=== PATIENT | female | born 1970 | race African-American/Black ===

== ENCOUNTER 2016-08-13 14:01 | Emergency (ER) | payer OTHER ==
[~2016-08-13] VITALS: Ht 177.8 cm; Wt 82.1 kg
[~2016-08-13 14:01] MED LIST: ACETAMINOPHEN-1 EAC1 ORAL; ACETAMINOPHEN650 M2 ORAL; ACYCLOVIR400 MG ORAL; ALBUTEROL SULF8.5 GM INH; ATARAX50 MG ORAL; AUGMENTIN TAB875 MG ORAL; AZITHROMYCIN250 MG ORAL; BACITRACIN15 GM TOPIC; BACTRIM DS TAB1 EAC1 ORAL; BACTRIM-DS1 EA ORAL; BACTROBAN 2% OI15 GM TOPIC; BENADRYL25 MG ORAL; BENADRYL50 MG ORAL; CEPHALEXIN500 MG ORAL; CORTISPORIN-TC10 M1 RIGHT EAR; FLONASE1 SPRAYS NASAL; HYDROCORTISONE28 G5 TP; IBUPROFEN600 MG ORAL; KEFLEX500 MG ORAL; KENALOG 0.1% CR15 GM APPLIC; LEVAQUIN500 MG ORAL; LIDOCAINE VISCO20 ML *; MEDROL DOSEPAK4 MG ORAL; MEDROL4 MG ORAL; MUPIROCIN22 GM TOPIC; MYLANTA II30 ML GT; NKM; NORCO 5-325 TA1 EAC1 ORAL; OMEPRAZOLE20 M2 ORAL; OPCON-A EYE DRO15 ML OP; PREDNISONE20 MG ORAL; PREDNISONE50 MG ORAL; PROMETHAZINE-C118 M1 ORAL; PROMETHAZINE-D118 ML ORAL; TRIAMCINOLONE A60 M1 TP; TUSSIN100 MG/52 PO; ZITHROMAX250 MG ORAL; ZOFRAN ODT4 MG ORAL; ZOFRAN4 MG ORAL; ZYRTEC10 MG ORAL
[2016-08-13 14:25] VITALS: BP 124/81
[2016-08-13] MEDS ORDERED: PredniSONE 20mg tab ORAL ONE (14:30)
[2016-08-13] MEDS ORDERED: PREDNISONE20 MG ORAL (14:35)
[2016-08-13] MEDS ORDERED: KENALOG 0.025%15 GM APPLIC (14:35)
[2016-08-13 14:40] VITALS: BP 124/81
--- NOTE | 2016-08-13 14:59 | Emergency Room Report ---
History of Present Illness General Chief Complaint: Skin Rash/Abscess Source: Patient Present Illness HPI The patient is a 46-year-old female presenting for possible allergic reaction. She states that she used triple antibiotic ointment on the left arm and then noticed a red rash with itching. She denies any pain. She denies any known allergies. She denies any other symptoms including SOB, facial or extremity swelling, CP, F, chills, N, V, DELCID, dizziness Allergies: Coded Allergies: No Known Allergies (Unverified , 07/04/12) Patient History Past Medical History: see triage record Pertinent Family History: none Last Menstrual Period: 08/01/16 Now: No : 2 Para: 2 Reviewed Nursing Documentation: PMH: Agreed, PSxH: Agreed Nursing Documentation-PMH Past Medical History: No History, Except For Hx Cardiac Problems: No Hx Cancer: No Hx Gastrointestinal Problems: Yes Hx Neurological Problems: No - neuropathy eczema Hx Cerebrovascular Accident: No Review of Systems All Other Systems: negative except mentioned in HPI Physical Exam Vital Signs Date Time Temp Pulse Resp B/P Pulse Ox O2 Delivery O2 Flow Rate FiO2 08/13/16 14:10 98.2 71 16 121/84 99 Room Air Sp02 EP Interpretation: reviewed, normal General Appearance: no apparent distress, alert, GCS 15, non-toxic Head: normocephalic, atraumatic Eyes: bilateral eye PERRL, bilateral eye normal inspection ENT: hearing grossly normal, normal pharynx, no angioedema, normal voice Neck: full range of motion, supple/symm/no masses Musculoskeletal: back normal, gait/station normal, normal range of motion, non- tender Neurologic: alert, oriented x3, responsive, motor strength/tone normal, sensory intact, speech normal Psychiatric: judgement/insight normal, memory normal, mood/affect normal, no suicidal/homicidal ideation Skin: rash - maculopapular rash of the L upper chest Lymphatic: no adenopathy Medical Decision Making PA Attestation Dr. Huitron is my supervising physician. Patient management was discussed with my supervising physician Diagnostic Impression: Primary Impression: Contact dermatitis Qualified Codes: L23.3 - Allergic contact dermatitis due to drugs in contact with skin ER Course The patient is a 46-year-old female presenting for rash Ddx considered include but not limited to insect bite, contact dermatitis, eczema, cellulitis PE: vitals WNL. NAD There is a maculopapular rash of the left upper chest. No edema. Nontender. The patient is given prednisone in the emergency department and will be discharged home with prednisone and triamcinolone. She'll stop using triple antibiotic ointment. ER precautions given Last Vital Signs Date Time Temp Pulse Resp B/P Pulse Ox O2 Delivery O2 Flow Rate FiO2 08/13/16 14:40 98.1 68 15 124/81 98 Room Air Status: improved Disposition: HOME, SELF-CARE Condition: Improved Scripts Triamcinolone Acet (Triamcinolone Acetonide) 15 Gm Cream..g. 15 GM APPLIC TID, #15 GM Prov: SUNI LANDERS 08/13/16 Prednisone* (PREDNISONE*) 20 Mg Tablet 40 MG ORAL DAILY, #6 TAB Prov: SUNI LANDERS 08/13/16 Referrals: NON PHYSICIAN (PCP) Patient Instructions: Rash Additional Instructions: I discussed my findings with the patient. All questions and concerns have been answered. Treatment and medication compliance have been addressed. I advised the patient that they need to follow up with PMD in 3-5 days. Return to ED if symptoms worsen, new symptoms arise, or if needed for any reason. Patient verbalized understanding of discharge instructions. The patient will stop using triple antibiotic ointment SUNI LANDERS Aug 13, 2016 14:59
== END 2016-08-13 14:41 | disposition home or self-care (01) ==
LOC: EMR 14:30
DX: L25.9 Unspecified contact dermatitis, unspecified cause (principal)
CPT/HCPCS: 99284

== ENCOUNTER 2017-11-22 15:56 | Emergency (ER) | payer MEDICAID, OTHER ==
[~2017-11-22] VITALS: Ht 177.8 cm; Wt 67.1 kg
[~2017-11-22 15:56] MED LIST changes: +KENALOG 0.025%15 GM APPLIC
[2017-11-22 16:18] VITALS: BP 170/109
--- NOTE | 2017-11-22 16:43 | Emergency Room Report ---
History of Present Illness General Chief Complaint: Skin Rash/Abscess Source: Patient Present Illness HPI 47-year-old female patient presents ER with multiple complaints. Patient complaining of eczematous rash on bilateral upper axillary regions, states has been taking hydrocortisone, and took 1 dose of prednisone from a friend several days ago. Reports has primary care provider but has not seen them, has appointment scheduled next week. requesting stronger medication than cortisone and Benadryl for relief of itching symptoms. Denies fever, chest pain , shortness of breath, abdominal pain. Patient also complaining of cough for the past 3 days, states that she smokes cigarettes. Denies hemoptysis. denies recent travel or immobilization. reports history of hypertension, not well controlled. Denies history of CHF or asthma. Also complaining of congestion during this time. Reports history of allergies. Also complaining about smelling odor from urine. denies pelvic rash. Denies dysuria, hematuria, vaginal discharge. reports previously tested for STI and treated. Patient requesting IV Benadryl for itching symptoms. patient also requesting IV pain medication. Allergies: Coded Allergies: No Known Allergies (Unverified , 07/04/12) Patient History Past Medical History: see triage record Now: No Reviewed Nursing Documentation: PMH: Agreed; PSxH: Agreed Nursing Documentation-PMH Past Medical History: No History, Except For Hx Cardiac Problems: No Hx Hypertension: Yes Hx Cancer: No Hx Gastrointestinal Problems: Yes Hx Neurological Problems: No - neuropathy eczema Hx Cerebrovascular Accident: No Review of Systems All Other Systems: negative except mentioned in HPI Physical Exam Vital Signs Date Time Temp Pulse Resp B/P (MAP) Pulse Ox O2 Delivery O2 Flow Rate FiO2 11/22/17 16:08 97.8 110 22 170/109 98 Room Air 97.9 Sp02 EP Interpretation: reviewed, normal General Appearance: well appearing, no apparent distress, alert, GCS 15, non- toxic Head: normocephalic, atraumatic Eyes: bilateral eye normal inspection, bilateral eye PERRL ENT: hearing grossly normal, normal pharynx, no angioedema, normal voice, TMs + canals normal, uvula midline, moist mucus membranes, nasal congestion Neck: full range of motion Respiratory: lungs clear, normal breath sounds, no rhonchi, no respiratory distress, no accessory muscle use, no wheezing, speaking full sentences Cardiovascular #1: regular rate, rhythm, no edema Gastrointestinal: non tender, soft, no mass, non-distended, no guarding, no pulsatile mass, no rebound Genitourinary: no CVA tenderness, deferred Musculoskeletal: back normal, digits/nails normal, gait/station normal, normal range of motion, non-tender, no calf tenderness, Marlen's Sign negative Neurologic: alert, oriented x3, responsive, motor strength/tone normal, sensory intact Psychiatric: mood/affect normal Skin: rash - eczematous rash on bilateral axillary regions and flexor surfaces of anterior cubital fossa, no active drainage, no vesicles, no blisters, no surrounding erythema or edema, no scalloped borders. no central clearing Medical Decision Making PA Attestation Dr. Acosta is my supervising Physician whom patient management has been discussed with. Diagnostic Impression: Primary Impression: Eczema Additional Impressions: URI (upper respiratory infection) Bacterial vaginosis Drug-seeking behavior ER Course Pt. presents to the ED c/o rash, foul-smelling odor in urine and cough. Ddx considered but are not limited to atopic dermatitis, scabies, shingles, hives, urticaria, angiodema, allergic reaction, impetigo, no vesicles, no blisters, low suspicion for shingles. Low suspicion for PE per Well's criteria, no hemoptysis, no calf swelling, no blood medications, no recent travel or immobilization. Vital signs: are WNL, pt. is afebrile. Blood pressure mildly elevated at this time, will continue to monitor. Denies chest pain, shortness of breath, vision changes, does not require acute intervention at ER at this time. Follow with primary care provider discuss further treatment and referral. Advised on low-sodium diet, advised on diet and exercise. instructed patient to follow-up with primary care provider and be compliant with hypertension medications. ER COURSE Initial physical exam patient complaining of bilateral eczematous rash in armpits. On repeat physical exam patient had multiple other complaints including foul smelling urine odor and cough. Patient requesting IV Benadryl and medication, informed patient would not provide her with IV Benadryl. Suspicious for drug-seeking behavior. Physical exam consistent with eczema. Will provide patient with Benadryl for itching and medrol Dosepak. Instructed patient not take other people's medication. Followup with dermatology. contact information for dermatology. Patient states has appointment with physician next week, will discuss Derm referral and medication at that time. Lungs clear to auscultation, no wheezes rhonchi or rails, patient is afebrile, does not require imaging of chest, low suspicion for pneumonia. likely upper respiratory tract infection, provide treatment patient. no lower leg edema, no decreased lung sounds, no hx of CHF, low suspicion for CHF exacerbation. High clinical suspicion for bacterial vaginosis due to patient complaining of foul smelling odor, will treat empirically with Metronidazole. Patient denies dysuria, hematuria, does not require UA at this time. Instructed patient to follow-up with STI clinic for further STI testing treatment, denies concern for STI at this time. Provide with contact information for STI clinics. Have partners wear condoms during sex. Drink plenty fluids. DISCHARGE: -Rx given for Benadryl for pruritis. SE drowsiness, do not take prior to drinking, driving, operating heavy machinery. -Rx given for Flonase -Rx given for metronidazole, do not drink while taking medication -Rx given for Triamcinolone -Rx given for Medrol dose pack At this time pt. is stable for d/c to home. Patient resting comfortably, in no acute distress, nontoxic appearing. Will provide printed patient care instructions, and any necessary prescriptions. Care plan and follow up instructions have been discussed with the patient prior to discharge. Patient provided with list of healthcare clinics to establish primary care physician. Patient instructed to follow-up with primary care provider in 3 - 5 days. Patient questions asked and answered. ER precautions given. Patient instructed to return to ER immediately for any new or worsening of symptoms including but not limited to increasing SOB, persistent fever. - Please note that this Emergency Department Report was dictated using Gigitadult literacy instructor technology software, occasionally this can lead to erroneous entry secondary to interpretation by the dictation equipment. Last Vital Signs Date Time Temp Pulse Resp B/P (MAP) Pulse Ox O2 Delivery O2 Flow Rate FiO2 11/22/17 16:18 97.9 22 170/109 98 Room Air 97.9 11/22/17 16:08 110 Disposition: HOME, SELF-CARE Condition: Stable Scripts Methylprednisolone (MEDROL) 4 Mg Tab.ds.pk 4 MG PO DAILY, #1 PACK Prov: Alvin Francis 11/22/17 Triamcinolone Acetonide (TRIAMCINOLONE ACETONIDE) 15 Gm Cream..g. 15 GM TP DAILY, #15 GM Prov: Alvin Francis 11/22/17 Metronidazole* (METROGEL-VAGINAL*) 70 Gm Gel.w.appl 1 APPL VAGIN EVERY 12 HOURS, #70 GM Prov: Alvin Francis 11/22/17 Diphenhydramine Hcl* (BENADRYL*) 25 Mg Capsule 25 MG ORAL Q6H PRN for Itching, #30 CAP Prov: Alvin Francis 11/22/17 Fluticasone Propionate (Flonase Allergy Relief) 9.9 Ml [place].susp 9.9 ML NS DAILY, #9.9 ML Prov: Alvin Francis 11/22/17 Patient Instructions: Bacterial Vaginosis, Eczema, Upper Respiratory Infection , Adult, [id number] Additional Instructions: Followup with primary care provider in 3 -5 days. Request referral to dermatology. Do not scratch or itch. Apply cool compresses to affected area. Do not drink alcohol taking metronidazole due to side effects. Drink plenty of fluids. Take medications as directed. Do not apply medication to face or skin creases. SE Benadryl drowsiness, do not take prior to drinking, driving, operating heavy machinery. Patient questions asked and answered. ER precautions given, patient instructed to return to ER immediately for any new or worsening of symptoms. [facility] Alvin Francis Nov 22, 2017 16:43
[2017-11-22] MEDS ORDERED: FLONASE ALLERG9.9 ML NS (16:52)
[2017-11-22] MEDS ORDERED: METROGEL-VAGINA70 G1 VAGIN (16:52)
[2017-11-22] MEDS ORDERED: BENADRYL25 MG ORAL (16:52)
[2017-11-22] MEDS ORDERED: TRIAMCINOLONE A15 GM TP (16:52)
[2017-11-22] MEDS ORDERED: MEDROL4 M1 PO (16:52)
[2017-11-22 16:57] VITALS: BP 166/94
== END 2017-11-22 16:57 | disposition home or self-care (01) ==
LOC: EMR 16:25
DX: L30.9 Dermatitis, unspecified (principal); J06.9 Acute upper respiratory infection, unspecified; N76.0 Acute vaginitis; B96.89 Other specified bacterial agents as the cause of diseases classified elsewhere; Z76.5 Malingerer [conscious simulation]
CPT/HCPCS: 99283

== ENCOUNTER 2017-12-04 10:50 | Emergency (ER) | payer MEDICAID ==
[~2017-12-04] VITALS: Ht 177.8 cm; Wt 65.8 kg
[~2017-12-04 10:50] MED LIST changes: +FLONASE ALLERG9.9 ML NS; +MEDROL4 M1 PO; +METROGEL-VAGINA70 G1 VAGIN; +TRIAMCINOLONE A15 GM TP
[2017-12-04 11:09] VITALS: BP 168/108
[2017-12-04] MEDS ORDERED: Bacitracin Oint UD TOPIC ONE ×2 (11:59→12:30)
--- NOTE | 2017-12-04 12:01 | Emergency Room Report ---
History of Present Illness General Chief Complaint: Pain Source: Patient Present Illness HPI Patient complains of chronic right arm pain. She states that the pain is in the triceps muscle and biceps muscle of her right arm. She states that this is been ongoing for many years. She denies recent trauma or injury. She denies fever or chills. She denies weakness. She denies tingling or numbness. She also complains of a wound on her bottom lip. She states that she suffered a lip laceration 2 days ago. She is wondering if she can get it glued closed. She has no other complaints. Allergies: Coded Allergies: No Known Allergies (Unverified , 07/04/12) Patient History Past Medical History: see triage record, HTN, other - neuropathy Social History: Reports: smoking, alcohol use, drug use Last Menstrual Period: over an year ago Now: No Reviewed Nursing Documentation: PMH: Agreed; PSxH: Agreed Nursing Documentation-PMH Past Medical History: No History, Except For Hx Cardiac Problems: No Hx Hypertension: Yes Hx Cancer: No Hx Gastrointestinal Problems: Yes Hx Neurological Problems: No - neuropathy eczema Hx Cerebrovascular Accident: No Review of Systems All Other Systems: negative except mentioned in HPI Physical Exam Vital Signs Date Time Temp Pulse Resp B/P (MAP) Pulse Ox O2 Delivery O2 Flow Rate FiO2 12/04/17 11:00 98.2 100 18 168/108 96 Room Air 98.2 Sp02 EP Interpretation: reviewed, normal General Appearance: no apparent distress, alert, GCS 15, non-toxic Head: normocephalic, other - Bottom lip with 1mm depth irregular laceration of the lip. Eyes: bilateral eye normal inspection, bilateral eye PERRL ENT: hearing grossly normal, normal pharynx, no angioedema, normal voice Neck: full range of motion, supple/symm/no masses Respiratory: chest non-tender, lungs clear, normal breath sounds, no respiratory distress, no retraction, no accessory muscle use, speaking full sentences Cardiovascular #1: regular rate, rhythm, no edema Gastrointestinal: normal bowel sounds, non tender, soft, non-distended, no guarding, no rebound Rectal: deferred Musculoskeletal: back normal, gait/station normal, normal range of motion, non- tender Neurologic: alert, oriented x3, responsive, motor strength/tone normal, sensory intact, speech normal Psychiatric: judgement/insight normal, memory normal, mood/affect normal, no suicidal/homicidal ideation Skin: warm/dry, well hydrated, other - see above in head Medical Decision Making Diagnostic Impression: Primary Impression: Cervical radiculopathy Additional Impression: Lip laceration ER Course This patient has a healing lip laceration. There is some granulation tissue and some swelling that could be early infection versus traumatic inflammation. I will go ahead and start the patient on a course of antibiotics as a precaution. The patient's chronic right arm pain is likely secondary to cervical radiculopathy. The patient's examination is benign. Patient's pulses normal. I do not suspect DVT or surgical radiculopathy. The skin is warm, pulses are normal. The patient is instructed to follow-up routinely with her primary care physician. At this time I do not suspect emergency medical condition. The patient is given return precautions and follow-up instructions. Last Vital Signs Date Time Temp Pulse Resp B/P (MAP) Pulse Ox O2 Delivery O2 Flow Rate FiO2 12/04/17 11:09 98.2 100 18 168/108 96 Room Air 98.2 Status: improved Disposition: HOME, SELF-CARE Condition: Improved Referrals: [facility],REFERRING (PCP) Bertha Acosta DO Dec 04, 2017 12:01
[2017-12-04 12:11] VITALS: BP 163/98
[2017-12-04] MEDS ORDERED: AUGMENTIN 875-1 EAC1 ORAL (12:25)
[2017-12-04 12:30] VITALS: BP 163/98
== END 2017-12-04 12:31 | disposition home or self-care (01) ==
LOC: EMR 11:20
DX: M54.12 Radiculopathy, cervical region (principal); S01.511A Laceration without foreign body of lip, initial encounter; X58.XXXA Exposure to other specified factors, initial encounter; Y93.9 Activity, unspecified; Y92.9 Unspecified place or not applicable; I10 Essential (primary) hypertension
CPT/HCPCS: 99282

== ENCOUNTER 2018-03-01 03:45 | Emergency (ER) | payer MEDICAID ==
[~2018-03-01] VITALS: Ht 177.8 cm; Wt 65.8 kg
[~2018-03-01 03:45] MED LIST changes: +AUGMENTIN 875-1 EAC1 ORAL
[2018-03-01 04:02] VITALS: BP 158/97
--- NOTE | 2018-03-01 04:41 | Emergency Room Report ---
History of Present Illness General Chief Complaint: Abdominal Pain Source: Patient Present Illness HPI Patient presents with right-sided abdominal pain reports that started yesterday Patient reports drinking heavier alcohol than usual Denies any vomiting she has some increased nausea Denies any chest pain or shortness of breath denies any lower abdominal pain Denies any back or flank pain and eyes any dysuria or frequency Allergies: Coded Allergies: No Known Allergies (Unverified , 07/04/12) Patient History Past Medical History: see triage record Pertinent Family History: none Last Menstrual Period: 2017 Now: No Para: 2 Reviewed Nursing Documentation: PMH: Agreed; PSxH: Agreed Nursing Documentation-PMH Hx Cardiac Problems: No Hx Hypertension: Yes Hx Cancer: No Hx Gastrointestinal Problems: Yes Hx Neurological Problems: No - neuropathy eczema Hx Cerebrovascular Accident: No Review of Systems All Other Systems: negative except mentioned in HPI Physical Exam Vital Signs Date Time Temp Pulse Resp B/P (MAP) Pulse Ox O2 Delivery O2 Flow Rate FiO2 03/01/18 03:49 99.7 108 16 158/97 97 Room Air Sp02 EP Interpretation: reviewed, normal General Appearance: no apparent distress Head: normocephalic, atraumatic Eyes: bilateral eye PERRL, bilateral eye EOMI ENT: hearing grossly normal, normal pharynx, TMs + canals normal, uvula midline Neck: full range of motion, supple, no meningismus, no bony tend Respiratory: lungs clear, normal breath sounds, no rhonchi, no respiratory distress, no retraction, no accessory muscle use Cardiovascular #1: normal peripheral pulses, regular rate, rhythm, no edema, no gallop, no JVD, no murmur Gastrointestinal: normal bowel sounds, non tender, soft, no mass, no organomegaly, non-distended, no guarding, no hernia, no pulsatile mass, no rebound Genitourinary: no CVA tenderness Musculoskeletal: normal inspection Neurologic: oriented x3, responsive, platform consultant III-XII nml as tested, motor strength/ tone normal, sensory intact Psychiatric: mood/affect normal Skin: normal color, no rash, warm/dry, palpation normal Lymphatic: normal inspection, no adenopathy Medical Decision Making Diagnostic Impression: Primary Impression: Abdominal pain ER Course With the history exam and presentation, multiple differentials considered, including but not limited to appendicitis, gastritis, cholecystitis, diverticulitis Patient resting comfortably in the bed Palpation and abdominal exam is fairly benign Spectrum blood work was initiated which is normal on repeat evaluation patient still continues to rest well And is stable for initial conservative outpatient trial Labs Test 03/01/18 05:00 White Blood Count 9.2 K/UL (4.8-10.8) Red Blood Count 4.19 M/UL (4.20-5.40) Hemoglobin 13.4 G/DL (12.0-16.0) Hematocrit 40.0 % (37.0-47.0) Mean Corpuscular Volume 96 FL (80-99) Mean Corpuscular Hemoglobin 31.9 PG (27.0-31.0) Mean Corpuscular Hemoglobin Concent 33.4 G/DL (32.0-36.0) Red Cell Distribution Width 11.9 % (11.6-14.8) Platelet Count 308 K/UL (150-450) Mean Platelet Volume 7.6 FL (6.5-10.1) Neutrophils (%) (Auto) 79.4 % (45.0-75.0) Lymphocytes (%) (Auto) 13.7 % (20.0-45.0) Monocytes (%) (Auto) 6.0 % (1.0-10.0) Eosinophils (%) (Auto) 0.3 % (0.0-3.0) Basophils (%) (Auto) 0.7 % (0.0-2.0) Sodium Level 135 MMOL/L (136-145) Potassium Level 3.6 MMOL/L (3.5-5.1) Chloride Level 101 MMOL/L (98-107) Carbon Dioxide Level 25 MMOL/L (21-32) Anion Gap 9 mmol/L (5-15) Blood Urea Nitrogen 7 mg/dL (7-18) Creatinine 0.9 MG/DL (0.55-1.30) Estimat Glomerular Filtration Rate > 60 mL/min (>60) Glucose Level 97 MG/DL (74-106) Calcium Level 9.0 MG/DL (8.5-10.1) Total Bilirubin 0.3 MG/DL (0.2-1.0) Aspartate Amino Transf (AST/SGOT) 22 U/L (15-37) Alanine Aminotransferase (ALT/SGPT) 21 U/L (12-78) Alkaline Phosphatase 111 U/L (46-116) Total Protein 9.2 G/DL (6.4-8.2) Albumin 3.2 G/DL (3.4-5.0) Globulin 6.0 g/dL Albumin/Globulin Ratio 0.5 (1.0-2.7) Lipase 110 U/L (73-393) Last Vital Signs Date Time Temp Pulse Resp B/P (MAP) Pulse Ox O2 Delivery O2 Flow Rate FiO2 03/01/18 04:02 108 16 Room Air 03/01/18 04:02 99.7 158/97 97 Status: improved Disposition: HOME, SELF-CARE Condition: Improved Scripts Acetaminophen (Tylenol) 325 Mg Tablet 650 MG ORAL Q8HR PRN for Prn Pain/Headache/Temp > 101, #15 TAB 0 Refills Prov: Enedina Hernandez DO 03/01/18 Famotidine (PEPCID AC) 20 Mg Tablet 20 MG PO DAILY, #15 TAB Prov: Enedina Hernandez DO 03/01/18 Additional Instructions: Patient is provided with the discharge instructions notified to follow up with primary doctor in the next 2-3 days otherwise return to the er with any worsening symptoms. Please note that this report is being documented using [employer] technology. This can lead to erroneous entry secondary to incorrect interpretation by the dictating instrument. Enedina Hernandez DO Mar 01, 2018 04:41
[2018-03-01 05:19] LABS: BASOPHILS % (AUTO) 0.7 % (0.0-2.0); EOSINOPHILS % (AUTO) 0.3 % (0.0-3.0); HEMOGLOBIN 13.4 G/DL (12.0-16.0); LYMPHOCYTES % (AUTO) 13.7 % (20.0-45.0); MEAN CORPUSCULAR VOLUME 96 FL (80-99); NEUTROPHILS % (AUTO) 79.4 % (45.0-75.0); PLATELET COUNT 308 K/UL (150-450); RED BLOOD COUNT 4.19 M/UL (4.20-5.40); RED CELL DISTRIBUTION WIDTH 11.9 % (11.6-14.8); WHITE BLOOD COUNT 9.2 K/UL (4.8-10.8)
[2018-03-01 05:27] LABS: ANION GAP 9 mmol/L (5-15); BLOOD UREA NITROGEN 7 mg/dL (7-18); CARBON DIOXIDE 25 MMOL/L (21-32); CHLORIDE 101 MMOL/L (98-107); CREATININE 0.9 MG/DL (0.55-1.30); POTASSIUM 3.6 MMOL/L (3.5-5.1); SODIUM 135 MMOL/L (136-145)
[2018-03-01 05:39] LABS: ALANINE AMINOTRANSFERASE 21 U/L (12-78); ALBUMIN 3.2 G/DL (3.4-5.0); ALBUMIN/GLOBULIN RATIO 0.5 (1.0-2.7); ALKALINE PHOSPHATASE 111 U/L (46-116); ASPARTATE AMINO TRANSFERASE 22 U/L (15-37); BILIRUBIN,TOTAL 0.3 MG/DL (0.2-1.0)
[2018-03-01] MEDS ORDERED: PEPCID AC20 M2 PO (06:13)
[2018-03-01] MEDS ORDERED: TYLENOL325 MG ORAL (06:13)
[2018-03-01 06:23] VITALS: BP 146/96
== END 2018-03-01 06:31 | disposition home or self-care (01) ==
LOC: EMR 04:43
DX: R10.9 Unspecified abdominal pain (principal); I10 Essential (primary) hypertension; F17.200 Nicotine dependence, unspecified, uncomplicated; Z72.89 Other problems related to lifestyle
CPT/HCPCS: 36415; 80053; 83690; 85025; 99283

== ENCOUNTER 2018-04-25 20:06 | Emergency (ER) | payer MEDICAID ==
[~2018-04-25] VITALS: Ht 177.8 cm; Wt 68.9 kg
[~2018-04-25 20:06] MED LIST changes: +PEPCID AC20 M2 PO; +TYLENOL325 MG ORAL
[2018-04-25] MEDS ORDERED: HYDROCORTISO28.35 G1 TOPIC (20:25)
--- NOTE | 2018-04-25 20:30 | NUR ---
ED Nurse Note: Pt arrived ED from home. C/o skin itching on both arms for 2 day. Pt is A/O x4. Vital signs stable at this time, waiting for orders.
[2018-04-25 20:35] VITALS: BP 154/98
[2018-04-25] MEDS ORDERED: DiphenhydrAMINE 50mg/ml Inj IM ONE (20:45)
[2018-04-25] MEDS ORDERED: KENALOG 0.025%15 GM APPLIC (20:51)
[2018-04-25] MEDS ORDERED: PREDNISONE20 MG ORAL (20:51)
[2018-04-25] MEDS ORDERED: DIPHENHYDRAMINE25 M1 ORAL (20:51)
[2018-04-25] MEDS ORDERED: CALAMINE LOTIO177 ML TP (21:11)
[2018-04-25 21:14] VITALS: BP 154/98
--- NOTE | 2018-04-25 21:14 | NUR ---
ED Nurse Note: Pt has seen by Dr. Esquivel/PA, all orders carried out.Pt is ready for Discharge. D/C instruction and Prescription given to Pt and verbalized understanding. ID band removed. Pt d/c from ED with steady gait.
--- NOTE | 2018-04-29 07:37 | Emergency Room Report ---
History of Present Illness General Chief Complaint: Skin Rash/Abscess Source: Patient Present Illness HPI 48-year-old female presents ED for evaluation of rash. States the rash is been there for the last 2 days. Diffuse to the arms legs and chest. States it is very EKG. Denies fevers or chills. Denies sick contacts. States she has a history of eczema and some allergic reactions. Does not know what she is allergic to. Denies throat swelling or tongue swelling. Denies shortness of breath. No other aggravating relieving factors. Denies any other associated symptoms Allergies: Coded Allergies: No Known Allergies (Unverified , 07/04/12) Patient History Past Medical History: HTN Past Surgical History: none Pertinent Family History: none Social History: Denies: smoking, alcohol use, drug use Now: No Immunizations: UTD Reviewed Nursing Documentation: PMH: Agreed; PSxH: Agreed Nursing Documentation-PMH Past Medical History: No History, Except For Hx Cardiac Problems: No Hx Hypertension: Yes Hx Cancer: No Hx Gastrointestinal Problems: Yes Hx Neurological Problems: No - neuropathy eczema Hx Cerebrovascular Accident: No Review of Systems All Other Systems: negative except mentioned in HPI Physical Exam Vital Signs Date Time Temp Pulse Resp B/P (MAP) Pulse Ox O2 Delivery O2 Flow Rate FiO2 04/25/18 20:19 98.1 100 20 165/107 97 Room Air Sp02 EP Interpretation: reviewed, normal General Appearance: no apparent distress, alert, GCS 15, non-toxic Head: normocephalic Eyes: bilateral eye normal inspection, bilateral eye PERRL ENT: normal ENT inspection Neck: normal inspection Respiratory: normal inspection Cardiovascular #1: normal inspection Gastrointestinal: normal inspection Rectal: deferred Genitourinary: no CVA tenderness Musculoskeletal: normal inspection Neurologic: alert, oriented x3, responsive, motor strength/tone normal, sensory intact, speech normal Psychiatric: normal inspection Skin: rash - diffuse urticarial rash to arms, legs, chest Lymphatic: normal inspection Medical Decision Making Diagnostic Impression: Primary Impression: Urticaria ER Course Hospital Course 48-year-old female presents to ED with rash Differential diagnoses include: Cellulitis, dermatitis, insect bite, abscess Clinical course Patient placed on stretcher. After initial history, physical exam reveals a middle aged female in no acute distress. On exam there is a diffuse urticarial rash noted to the arms legs and chest. Nonerythematous base. Consideration for allergic reaction versus eczematous flareup. No signs of anaphylaxis or airway compromise. No signs of cellulitis Patient given prednisone and Benadryl here. We'll discharge with triamcinolone and calamine lotion as well. Safe for discharge or close outpatient follow-up. Patient states she has a PMD Diagnosis - urticaria stable and discharged to home with prescription for prednisone, benedryl, calamine lotion, triamcinolone. Instructed to followup with PMD. Instructed return to ED if symptoms recur or worsen Last Vital Signs Date Time Temp Pulse Resp B/P (MAP) Pulse Ox O2 Delivery O2 Flow Rate FiO2 04/25/18 21:14 98.1 82 20 154/98 91 Room Air Disposition: HOME, SELF-CARE Condition: Stable Scripts Calamine/Zinc Oxide (CALAMINE LOTION*) 177 Ml Suspension 1 APPLIC TP DAILY, #177 ML 0 Refills Prov: Jamie Huitron MD 04/25/18 Diphenhydramine Hcl* (DIPHENHYDRAMINE HCL*) 25 Mg Capsule 25 MG ORAL Q8H PRN for Itching, #30 CAP 0 Refills Prov: Jamie Huitron MD 04/25/18 Prednisone* (PREDNISONE*) 20 Mg Tablet 40 MG ORAL DAILY, #10 TAB Prov: Jamie Huitron MD 04/25/18 Triamcinolone Acet (Triamcinolone Acetonide) 15 Gm Cream..g. 15 GM APPLIC TID, #15 GM Prov: Jamie Huitron MD 04/25/18 Referrals: [facility],REFERRING (PCP) Patient Instructions: Dane [place] Jamie Huitron MD Apr 29, 2018 07:37
== END 2018-04-25 21:14 | disposition home or self-care (01) ==
LOC: EMR 20:57
DX: L50.9 Urticaria, unspecified (principal); I10 Essential (primary) hypertension
CPT/HCPCS: 96372; 99283; J1200; J7512

== ENCOUNTER 2020-01-01 04:21 | Emergency (ER) | payer MEDICAID, OTHER ==
[~2020-01-01] VITALS: Ht 167.6 cm; Wt 61.2 kg
[~2020-01-01 04:21] MED LIST changes: +CALAMINE LOTIO177 ML TP; +DIPHENHYDRAMINE25 M1 ORAL; +HYDROCORTISO28.35 G1 TOPIC
--- NOTE | 2020-01-01 04:50 | NUR ---
ED Nurse Note: Pt walked into ED from home with c/o weaping rash under right arm for 4 days with pain at 9/10. Pt's underarm is red, was moist. Pt denies fever, nausea, vomiting, or chills.
[2020-01-01 05:00] VITALS: BP 134/93
--- NOTE | 2020-01-01 05:09 | Emergency Room Report ---
History of Present Illness General Chief Complaint: Skin Rash/Abscess Source: Patient Present Illness HPI Patient Is a 49-year-old female presents for increased right axillary discomfort. Reports having onset of symptoms approximately 3 to 4 days ago. Prior history of eczema in the past. Previously been told she had elevated rheumatoid factor. Previous history of substance abuse. Had increased pain to the right axillary area. Denies any prior history of breast cancer states she had a negative mammogram 2 years ago.Denies any fever. Reports increased pain to the right axillary area. 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 Patient History Past Medical History: see triage record Reviewed Nursing Documentation: PMH: Agreed; PSxH: Agreed Nursing Documentation-PMH Hx Cardiac Problems: No Hx Hypertension: Yes Hx Cancer: No Hx Gastrointestinal Problems: Yes Hx Neurological Problems: No - neuropathy eczema Hx Cerebrovascular Accident: No Review of Systems ENT: Reports: nose pain Respiratory: Reports: no symptoms Gastrointestinal: Reports: no symptoms Genitourinary: Reports: no symptoms Musculoskeletal: Reports: joint pain Skin: Reports: rash, lesions Psychiatric: Reports: no symptoms Neurological: Reports: no symptoms Endocrine: Reports: no symptoms Hematologic/Lymphatic: Reports: no symptoms All Other Systems: negative except mentioned in HPI Physical Exam Vital Signs Date Time Temp Pulse Resp B/P (MAP) Pulse Ox O2 Delivery O2 Flow Rate FiO2 01/01/20 04:42 98.4 89 15 134/93 (107) 95 Room Air Sp02 EP Interpretation: reviewed, normal General Appearance: normal inspection, well appearing, no apparent distress, alert, GCS 15, Chronically Ill Head: atraumatic ENT: normal ENT inspection, hearing grossly normal, normal voice Neck: normal inspection, full range of motion, supple, no bony tend Respiratory: normal inspection, lungs clear, normal breath sounds, no respiratory distress, no retraction, no wheezing Cardiovascular #1: regular rate, rhythm, edema - Extremity edema Gastrointestinal: normal inspection, normal bowel sounds, non tender, soft, no guarding, no hernia Genitourinary: no CVA tenderness Musculoskeletal: normal inspection, back normal, normal range of motion Neurologic: alert, motor strength/tone normal, defect repairer glassware III-XII nml as tested, oriented x3, responsive, speech normal, normal inspection Psychiatric: normal inspection, judgement/insight normal, mood/affect normal Skin: other - Warmth and erythema to the right axillary area. Right breast appears to be somewhat erythematous. Tenderness to right axilla Medical Decision Making Diagnostic Impression: Primary Impression: Cellulitis of axilla, right Additional Impression: Eczema ER Course Patient presented for right-sided axillary skin rash. Differential diagnosis include was not limited to eczematous dermatitis, cellulitis, breast cancer, abscess among others. Because of complexity of patient's case laboratory tests and imaging studies were ordered. Patient was noted to have what appears to have some eczematous skin lesions to the breast with what appears to be some secondary infection to the right axillary area. CXR showed normal cardiac size without infiltrate. Patient does have some edema and some findings consistent with eczema however there does appear to be some infection to the right axillary area with some weeping. Patient requested steroids and was given Decadron as well as Benadryl. She was given IV antibiotics secondary infection. Patient states she's had negative mammography 2 years ago. Patient was endorsed to Dr. Jade who agreed to accept patient to [facility]. Labs Test 01/01/20 05:00 White Blood Count 7.8 K/UL (4.8-10.8) Red Blood Count 3.59 M/UL (4.20-5.40) Hemoglobin 11.7 G/DL (12.0-16.0) Hematocrit 34.1 % (37.0-47.0) Mean Corpuscular Volume 95 FL (80-99) Mean Corpuscular Hemoglobin 32.7 PG (27.0-31.0) Mean Corpuscular Hemoglobin Concent 34.3 G/DL (32.0-36.0) Red Cell Distribution Width 12.5 % (11.6-14.8) Platelet Count 270 K/UL (150-450) Mean Platelet Volume 6.2 FL (6.5-10.1) Neutrophils (%) (Auto) 57.2 % (45.0-75.0) Lymphocytes (%) (Auto) 30.5 % (20.0-45.0) Monocytes (%) (Auto) 7.0 % (1.0-10.0) Eosinophils (%) (Auto) 1.6 % (0.0-3.0) Basophils (%) (Auto) 3.7 % (0.0-2.0) EKG Diagnostic Results Rate: normal Rhythm: NSR ST Segments: no acute changes Last Vital Signs Date Time Temp Pulse Resp B/P (MAP) Pulse Ox O2 Delivery O2 Flow Rate FiO2 01/01/20 05:00 98.4 78 15 134/93 95 Room Air Status: improved Disposition: SHORT-TERM HOSP Condition: Stable Referrals: [facility],REFERRING (PCP) Musa Henry MD Jan 01, 2020 05:09
[2020-01-01] MEDS ORDERED: Ampicillin/Sulbactam Sod 3 GM in NS 110 ML IV ONE (05:15)
[2020-01-01] MEDS ORDERED: DiphenhydrAMINE 50mg/ml Inj IVP ONE (05:15)
--- NOTE | 2020-01-01 05:28 | NUR ---
ED Nurse Note: blood sent to lab
--- NOTE | 2020-01-01 05:30 | NUR ---
ED Nurse Note: identification technician at bedside performing cxr
[2020-01-01 05:51] LABS: BASOPHILS % (AUTO) 3.7 % (0.0-2.0); EOSINOPHILS % (AUTO) 1.6 % (0.0-3.0); HEMATOCRIT 34.1 % (37.0-47.0); HEMOGLOBIN 11.7 G/DL (12.0-16.0); LYMPHOCYTES % (AUTO) 30.5 % (20.0-45.0); MEAN CORPUSCULAR VOLUME 95 FL (80-99); NEUTROPHILS % (AUTO) 57.2 % (45.0-75.0); PLATELET COUNT 270 K/UL (150-450); RED BLOOD COUNT 3.59 M/UL (4.20-5.40); RED CELL DISTRIBUTION WIDTH 12.5 % (11.6-14.8); WHITE BLOOD COUNT 7.8 K/UL (4.8-10.8)
--- NOTE | 2020-01-01 06:00 | NUR ---
ED Nurse Note: pt unable to provide urine sample at this time.
--- NOTE | 2020-01-01 06:05 | NUR ---
ED Nurse Note: EDMD aware pt not able to give urine, per EDMD ok if not able to get urine.
[2020-01-01 06:06] LABS: ANION GAP 9 mmol/L (5-15); BLOOD UREA NITROGEN 19 mg/dL (7-18); CALCIUM 8.1 MG/DL (8.5-10.1); CARBON DIOXIDE 26 MMOL/L (21-32); CHLORIDE 106 MMOL/L (98-107); CREATININE 0.8 MG/DL (0.55-1.30); POTASSIUM 3.8 MMOL/L (3.5-5.1); SODIUM 140 MMOL/L (136-145)
[2020-01-01 06:19] LABS: ALANINE AMINOTRANSFERASE 43 U/L (12-78); ALBUMIN 2.9 G/DL (3.4-5.0); ALBUMIN/GLOBULIN RATIO 0.8 (1.0-2.7); ALKALINE PHOSPHATASE 75 U/L (46-116); ASPARTATE AMINO TRANSFERASE 90 U/L (15-37); BILIRUBIN,TOTAL 0.2 MG/DL (0.2-1.0); CKMB 58.9 NG/ML (0.0-3.6); CREATINE KINASE 252 U/L (26-308); PHOSPHORUS 3.7 MG/DL (2.5-4.9)
--- NOTE | 2020-01-01 07:00 | Diagnostic Imaging Report ---
EXAM: XR Chest, 1 View CLINICAL HISTORY: SOB TECHNIQUE: Frontal view of the chest. COMPARISON: Chest radiograph June 18, 2015 FINDINGS/IMPRESSION: There is no focal consolidation, pleural effusion, or pneumothorax. Mildly cardiomegaly. Mild dextrocurvature of the thoracic spine.
--- NOTE | 2020-01-01 07:18 | NUR ---
HAND-OFF: Report given to GISSELLE Brizuela. RN aware urine sample needs to be collected.
--- NOTE | 2020-01-01 07:19 | NUR ---
ED Nurse Note: Recieved report from GISSELLE Cabello. Patient resting in the bed, AAO x4, VSS at this time, NAD noted.
--- NOTE | 2020-01-01 08:46 | NUR ---
ED Nurse Note: Patient was transfered to [facility] due to right armpit cellulitis. Patient was transfered via [facility] transportation unit # [id number], with all belongings. Patient has IV line on her right forearm 18ga saline lock. Patient AAO x4, all VSS at this time, skin is warm to touch.
[2020-01-01 08:49] VITALS: BP 117/90
--- NOTE | 2020-01-03 20:54 | Cardiology Report ---
APPROVED REPORT EKG Measurement Heart [id number] <Conclusion> Normal sinus rhythm Normal ECG
== END 2020-01-01 08:49 | disposition short-term general hospital (02) ==
LOC: EMR 04:54
DX: L03.111 Cellulitis of right axilla (principal); L30.9 Dermatitis, unspecified; I10 Essential (primary) hypertension; G62.9 Polyneuropathy, unspecified; I51.7 Cardiomegaly
CPT/HCPCS: 36415; 71045; 80053; 82550; 82553; 83605; 83735; 84100; 84484; 85025; 86140; 86850; 86900; 86901; 87040; 93005; 96365; 96375; J0295; J1100; J1200; Z7502; 99284

== ENCOUNTER 2020-02-14 16:15 | Emergency (ER) | payer OTHER ==
[~2020-02-14] VITALS: Ht 177.8 cm; Wt 68.9 kg
[2020-02-14 16:25] VITALS: BP 131/74
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
[2020-02-14] MEDS ORDERED: Tetanus/Diptheria/Pertussis IM ONE (16:45)
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
[2020-02-14] MEDS ORDERED: CHLORHEXIDINE473 ML MM (16:53)
[2020-02-14] MEDS ORDERED: AUGMENTIN 875-1 EAC1 ORAL (16:53)
[2020-02-14 16:56] VITALS: BP 142/78
--- NOTE | 2020-02-14 16:56 | NUR ---
ER DISCHARGE NOTE: Patient is cleared to be discharged per ERMD, pt is aox4, on room air, with stable vital signs. pt was given dc and prescription instructions, pt was able to verbalize understanding, pt id band removed. pt is able to ambulate with steady gait. pt took all belongings.
== END 2020-02-14 16:56 | disposition home or self-care (01) ==
LOC: EMR 16:35
DX: S01.511A Laceration without foreign body of lip, initial encounter (principal); I10 Essential (primary) hypertension; Y04.2XXA Assault by strike against or bumped into by another person, initial encounter; Y93.9 Activity, unspecified; Y92.9 Unspecified place or not applicable
CPT/HCPCS: 90471; 90715; Z7502; 99282